=== PATIENT | female | born 1965 | race Caucasian/White ===

== ENCOUNTER 2017-04-09 11:24 | Emergency (ER) | payer BC, MEDICAID ==
--- NOTE | 2017-04-09 12:28 | EDM.PDOC ---
ED HPI GENERAL MEDICAL PROBLEM - General Chief Complaint: Cardiovascular Problem Stated Complaint: A FIB??? Time Seen by Provider: 04/09/17 11:40 Source of Information: Reports: Patient History Limitations: Reports: No Limitations - History of Present Illness INITIAL COMMENTS - FREE TEXT/NARRATIVE: pt gives a history of numerous episodes of tach which sounds like pat. Sh had an episode while at work at the [employer] today. It started about 10 am nd he arrived here 2 hours later. She was having some chest tightnes. Someone at work has a pacemaker and she has a monitor that can look at the rhythm and it seemed like it was irregular. Whe she first arrived here the nurse took her pulse and it did seem regular. She felt herself convert just she was coming back to the ER room. Onset: Today, Sudden Duration: Hour(s): Location: Reports: Chest Quality: Reports: Other (pt did have slight pressure. ) Associated Symptoms: Reports: Shortness of Breath (pt did hve slight chest presure when she was fast. 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: Neurological History: Reports: Vertigo - Infectious Disease History Infectious Disease History: Reports: Chicken Pox, Measles, Rubella - Past Surgical History Female Surgical History: Reports: Section Musculoskeletal Surgical History: Reports: Other (See Below) Other Musculoskeletal Surgeries/Procedures:: foot surgery both feet Social & Family History - Tobacco Use Smoking Status *Q: Never Smoker - Caffeine Use Caffeine Use: Reports: Coffee - Recreational Drug Use Recreational Drug Use: No ED ROS GENERAL - Review of Systems Review Of Systems: See Below Constitutional: Reports: No Symptoms HEENT: Reports: No Symptoms Respiratory: Reports: No Symptoms Cardiovascular: Reports: Palpitations, Other ( 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 ) GI/Abdominal: Reports: No Symptoms : Reports: No Symptoms Skin: Reports: No Symptoms Neurological: Reports: No Symptoms Psychiatric: Reports: No Symptoms ED EXAM, GENERAL - Physical Exam Exam: See Below Free Text/Narrative:: pt arrived at the hosp with a rapid heart rhytm Exam Limited By: No Limitations General Appearance: Alert, Anxious, Mild Distress Ears: Normal TMs Nose: Normal Inspection Throat/Mouth: Normal Inspection Head: Atraumatic Neck: Normal Inspection Respiratory/Chest: No Respiratory Distress Cardiovascular: Regular Rate, Rhythm, Other (pt converted just as she was being brought back to the er. ) GI/Abdominal: Soft, Non-Tender (Female) Exam: Deferred Rectal (Female) Exam: Deferred Back Exam: Normal Inspection Extremities: Normal Inspection Neurological: Alert, Oriented, Normal Cognition Psychiatric: Anxious Course - Vital Signs Last Recorded V/S: Last Vital Signs Temp 37.0 C 04/09/17 11:38 Pulse 99 04/09/17 12:46 Resp 16 04/09/17 12:46 BP 132/87 04/09/17 12:46 Pulse Ox 99 04/09/17 12:46 - Orders/Labs/Meds Labs: Laboratory Tests 04/09/17 04/09/17 04/09/17 Range/Units 12:00 12:00 12:00 WBC 4.7 (4.5-11.0) K/uL RBC 4.57 (3.30-5.50) M/uL Hgb 14.3 (12.0-15.0) g/dL Hct 42.1 (36.0-48.0) % MCV 92 (80-98) fL MCH 31 (27-31) pg MCHC 34 (32-36) % Plt Count 263 (150-400) K/uL Neut % (Auto) 66 (36-66) % Lymph % (Auto) 21 L (24-44) % [place] % (Auto) 9 H (2-6) % Eos % (Auto) 3 (2-4) % Baso % (Auto) 1 (0-1) % Sodium 141 (140-148) mmol/L Potassium 4.0 (3.6-5.2) mmol/L Chloride 105 (100-108) mmol/L Carbon Dioxide 29 (21-32) mmol/L Anion Gap 7.4 (5.0-14.0) mmol/L BUN 14 (7-18) mg/dL Creatinine 0.8 (0.6-1.0) mg/dL Est Cr Clr Drug Dosing 68.82 mL/min Estimated GFR (MDRD) > 60 (>60) Glucose 92 (74-106) mg/dL Calcium 8.9 (8.5-10.1) mg/dL Total Bilirubin 0.4 (0.2-1.0) mg/dL AST 16 (15-37) U/L ALT 19 (12-78) U/L Alkaline Phosphatase 60 (46-116) U/L Creatine Kinase (26-192) U/L Troponin I < 0.017 (0.000-0.056) ng/mL Total Protein 7.5 (6.4-8.2) g/dL Albumin 3.9 (3.4-5.0) g/dL Globulin 3.6 H (2.3-3.5) g/dL Albumin/Globulin Ratio 1.1 L (1.2-2.2) TSH, Ultra Sensitive (0.358-3.740) uIU/mL 04/09/17 04/09/17 Range/Units 12:00 12:00 WBC (4.5-11.0) K/uL RBC (3.30-5.50) M/uL Hgb (12.0-15.0) g/dL Hct (36.0-48.0) % MCV (80-98) fL MCH (27-31) pg MCHC (32-36) % Plt Count (150-400) K/uL Neut % (Auto) (36-66) % Lymph % (Auto) (24-44) % [place] % (Auto) (2-6) % Eos % (Auto) (2-4) % Baso % (Auto) (0-1) % Sodium (140-148) mmol/L Potassium (3.6-5.2) mmol/L Chloride (100-108) mmol/L Carbon Dioxide (21-32) mmol/L Anion Gap (5.0-14.0) mmol/L BUN (7-18) mg/dL Creatinine (0.6-1.0) mg/dL Est Cr Clr Drug Dosing mL/min Estimated GFR (MDRD) (>60) Glucose (74-106) mg/dL Calcium (8.5-10.1) mg/dL Total Bilirubin (0.2-1.0) mg/dL AST (15-37) U/L ALT (12-78) U/L Alkaline Phosphatase (46-116) U/L Creatine Kinase 76 (26-192) U/L Troponin I (0.000-0.056) ng/mL Total Protein (6.4-8.2) g/dL Albumin (3.4-5.0) g/dL Globulin (2.3-3.5) g/dL Albumin/Globulin Ratio (1.2-2.2) TSH, Ultra Sensitive 0.998 (0.358-3.740) uIU/mL - Re-Assessments/Exams Free Text/Narrative Re-Assessment/Exam: 04/09/17 12:44 pt was found to have lab work that was normal. Departure - Departure Time of Disposition: 12:44 Disposition: Home, Self-Care 01 Condition: Fair Clinical Impression: Tachycardia Instructions: Sinus Tachycardia Referrals: PCP,None [Primary Care Provider] - Forms: ED Department Discharge Care Plan Goals: consider a full workup again if episodes come more frequently. rtc if problems.
[2017-04-09 12:58] VITALS: BP 132/87
== END 2017-04-09 12:58 | disposition home or self-care (01) ==
LOC: JP.ED 11:24
DX: R00.0 Tachycardia, unspecified (principal); Z98.890 Other specified postprocedural states
CPT/HCPCS: 36415; 80053; 82550; 84443; 84484; 85025; 93005; 93010; 99284; 99285-25

== ENCOUNTER → 2020-12-10 | Emergency (ER) | payer BC, MEDICAID ==
[2020-12-10 10:46] VITALS: BP 128/76; PULSE 97
--- NOTE | 2020-12-10 11:24 | EDM.PDOC ---
ED HPI GENERAL MEDICAL PROBLEM - General Chief Complaint: Respiratory Problem Stated Complaint: BREATHING ISSUES MAYBE COVID? Time Seen by Provider: 12/10/20 11:24 Source of Information: Reports: Patient History Limitations: Reports: No Limitations - History of Present Illness INITIAL COMMENTS - FREE TEXT/NARRATIVE: 55-year-old female with a cough, fevers, body aches for the last 4 days. She did not get Covid vaccination and she is wondering if she got Covid. Very fatigued, sleeping a lot. 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: Neurological History: Reports: Vertigo - Infectious Disease History Infectious Disease History: Reports: Chicken Pox, Measles, Rubella - Past Surgical History Female Surgical History: Reports: Section Musculoskeletal Surgical History: Reports: Other (See Below) Other Musculoskeletal Surgeries/Procedures:: foot surgery both feet Social & Family History - Tobacco Use Tobacco Use Status *Q: Never Tobacco User - Caffeine Use Caffeine Use: Reports: Coffee ED ROS GENERAL - Review of Systems Review Of Systems: See Below Constitutional: Reports: Fever, Chills, Malaise, Decreased Appetite HEENT: Denies: Throat Pain Respiratory: Reports: Shortness of Breath, Cough. Denies: Wheezing Cardiovascular: Denies: Chest Pain GI/Abdominal: Denies: Vomiting Musculoskeletal: Reports: Other (Generalized body aches) Skin: Denies: Rash Neurological: Reports: Dizziness, Weakness ED EXAM, GENERAL - Physical Exam Exam: See Below Exam Limited By: No Limitations General Appearance: Alert, No Apparent Distress Respiratory/Chest: No Respiratory Distress, Lungs Clear, Other (Lungs are clear despite frequent dry cough) Cardiovascular: Regular Rate, Rhythm Extremities: Normal Inspection Neurological: Alert, Oriented Psychiatric: Flat Affect Skin Exam: Warm, Dry Course - Vital Signs Last Recorded V/S: Last Vital Signs Temp 97.9 F 12/10/20 11:12 Pulse 97 12/10/20 11:12 Resp 16 12/10/20 11:12 BP 128/76 12/10/20 11:12 Pulse Ox 96 12/10/20 11:12 - Orders/Labs/Meds Orders: Active Orders 24 hr Category Date Time Status Isolation [COMM] Stat Oth 12/10/20 11:24 Ordered Labs: Laboratory Tests 12/10/20 Range/Units 11:24 Influenza Type A RNA Negative (NEGATIVE) RSV RNA (INAAT) Negative (NEGATIVE) Influenza Type B RNA Negative (NEGATIVE) SARS-CoV-2 RNA (GABBIE) Positive H (NEGATIVE) - Re-Assessments/Exams Free Text/Narrative Re-Assessment/Exam: 12/10/20 12:25 A 4 Plex Covid study was obtained which revealed positive Covid. She is an otherwise healthy 54-year-old female, not hypoxic, and does not meet anticlonal antibody therapy criteria. She will go home and rest and quarantine for the next 10 days, a work note was written. She can return anytime if she becomes more short of breath or feels she needs further evaluation. Departure - Departure Time of Disposition: 13:00 Disposition: Home, Self-Care 01 Clinical Impression: COVID-19 - Discharge Information Instructions: COVID-19 Referrals: PCP,None [Primary Care Provider] - Forms: ED Department Discharge Care Plan Goals: Rest, stay hydrated, increase activity as tolerated and return anytime if you feel you are worsening such as increased difficulty breathing or concerns about hydration. Sepsis Event Note (ED) - Evaluation Sepsis Screening Result: No Definite Risk - Focused Exam Vital Signs: Vital Signs Temp Pulse Resp BP Pulse Ox 12/10/20 11:12 97.9 F 97 16 128/76 96 12/10/20 10:45 97.9 F 97 16 128/76 96 - My Orders Last 24 Hours: My Active Orders 12/10/20 11:24 Isolation [COMM] Stat - Assessment/Plan Last 24 Hours: My Active Orders 12/10/20 11:24 Isolation [COMM] Stat
[2020-12-10 12:17] LABS: CORONAVIRUS COVID-19 NAA POSITIVE (NEGATIVE)
== END ==
LOC: JP.ED 10:15
DX: U07.1 COVID-19 (principal)
CPT/HCPCS: 0241U; 99282; 99283

== ENCOUNTER 2020-12-18 13:20 | Emergency (ER) | payer BC ==
[2020-12-18 13:39] VITALS: BP 116/78; PULSE 87
--- NOTE | 2020-12-18 14:10 | EDM.PDOC ---
ED HPI GENERAL MEDICAL PROBLEM - General Chief Complaint: Respiratory Problem Stated Complaint: RECURRING SYMPTOMS COVID Time Seen by Provider: 12/18/20 13:55 Source of Information: Reports: Patient, Old Records, RN History Limitations: Reports: No Limitations - History of Present Illness INITIAL COMMENTS - FREE TEXT/NARRATIVE: 55 yo female was seen here about [address] Pérez and dx'd with Covid. She was given a note to be off work at that time. She is no longer running fevers. She has a mostly dry, frequent cough now. She doesn't feel up to returning to work and when she called the clinic, since she was not established there, she was redirected back to the ER. She is not taking anything other than cough drops for her cough. Onset: Gradual Onset Date: 12/09/20 Duration: Week(s): (1+), Constant Location: Reports: Chest Quality: Reports: Other (no pain) Severity: Moderate Improves with: Reports: Rest Worsens with: Reports: Movement (or exertion) Context: Reports: Other (See HPI) Associated Symptoms: Reports: Cough, Shortness of Breath (mild with exertion). Denies: Fever/Chills Treatments GLOVE FORMER: Reports: Other (see below) (cough drops) denies Pain Score (Numeric/FACES): 0 - Related Data Allergies Allergy/AdvReac Type Severity Reaction Status Date / Time No Known Allergies Allergy Verified 12/18/20 13:39 Home Meds: Home Meds Ascorbic Acid [Vitamin C] 700 mg PO DAILY 12/18/20 [History] Cholecalciferol (Vitamin D3) [Vitamin D3] 4,000 unit PO DAILY 12/18/20 [History] Multivitamin [Multi-Vitamin Daily] 1 tab PO DAILY 12/18/20 [History] Zinc Gluconate [Zinc] 30 mg PO DAILY 12/18/20 [History] Past Medical History HEENT History: Reports: Impaired Vision Cardiovascular History: Reports: Other (See Below) Other Cardiovascular History: tachycardia [employer]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: Neurological History: Reports: Vertigo - Infectious Disease History Infectious Disease History: Reports: Chicken Pox, Measles, Rubella - Past Surgical History Female Surgical History: Reports: Section Musculoskeletal Surgical History: Reports: Other (See Below) Other Musculoskeletal Surgeries/Procedures:: foot surgery both feet Social & Family History - Tobacco Use Tobacco Use Status *Q: Never Tobacco User Second Hand Smoke Exposure: No - Caffeine Use Caffeine Use: Reports: Coffee, Tea - Recreational Drug Use Recreational Drug Use: No ED ROS GENERAL - Review of Systems Review Of Systems: See Below Constitutional: Reports: No Symptoms HEENT: Reports: No Symptoms Respiratory: Reports: Shortness of Breath (minimal), Cough. Denies: Sputum Cardiovascular: Reports: No Symptoms Endocrine: Reports: No Symptoms GI/Abdominal: Reports: No Symptoms : Reports: No Symptoms Musculoskeletal: Reports: No Symptoms Skin: Reports: No Symptoms Neurological: Reports: No Symptoms ED EXAM, GENERAL - Physical Exam Exam: See Below Exam Limited By: No Limitations General Appearance: Alert, WD/WN, No Apparent Distress Eye Exam: Bilateral Eye: Normal Inspection Ears: Normal External Exam, Normal Canal, Hearing Grossly Normal, Normal TMs Ear Exam: Bilateral Ear: Auricle Normal, Canal Normal, TM normal Nose: Normal Inspection, No Blood Throat/Mouth: Normal Inspection, Normal Lips, Normal Oropharynx, Normal Voice, No Airway Compromise Head: Atraumatic, Normocephalic Neck: Normal Inspection Respiratory/Chest: No Respiratory Distress, Lungs Clear, Normal Breath Sounds, No Accessory Muscle Use Cardiovascular: Regular Rate, Rhythm, No Edema Back Exam: Normal Inspection Extremities: Normal Inspection, Non-Tender, No Pedal Edema. No: Pedal Edema Neurological: Alert, Oriented, CN II-XII Intact, Normal Cognition, No Motor/Sensory Deficits Psychiatric: Normal Affect, Normal Mood Skin Exam: Warm, Dry, Intact, Normal Color, No Rash Course - Vital Signs Last Recorded V/S: Last Vital Signs Temp 36.4 C 12/18/20 13:48 Pulse 87 12/18/20 13:48 Resp 16 12/18/20 13:48 BP 116/78 12/18/20 13:48 Pulse Ox 95 12/18/20 13:48 Departure - Departure Time of Disposition: 14:15 Disposition: Home, Self-Care 01 Condition: Fair Clinical Impression: COVID-19, Cough - Discharge Information *PRESCRIPTION DRUG MONITORING PROGRAM REVIEWED*: Not Applicable *COPY OF PRESCRIPTION DRUG MONITORING REPORT IN PATIENT JANI: Not Applicable Instructions: COVID-19 Frequently Asked Questions Referrals: PCP,None [Primary Care Provider] - Additional Instructions: Take Delsym for cough during the day and switch to Robitussin AC at night. Continue taking vitamin D, 4000 IU per day suggested and Zinc 50 mg daily. Drink ample fluids. Continue isolation for a few more days as you may still be contagious. Consider elderberry extract per instructions([facility] is best howell on this). Get established at a clinic of your choice as you are able. Sepsis Event Note (ED) - Evaluation Sepsis Screening Result: No Definite Risk - Focused Exam Vital Signs: Vital Signs Temp Pulse Resp BP Pulse Ox 12/18/20 13:48 36.4 C 87 16 116/78 95 12/18/20 13:38 36.4 C 87 16 116/78 95
== END 2020-12-18 14:28 | disposition home or self-care (01) ==
LOC: JP.ED 13:20
DX: U07.1 COVID-19 (principal)
CPT/HCPCS: 99282; 99283